=== PATIENT | male | born 1955 | race Caucasian/White ===

== ENCOUNTER → 2021-05-09 14:54 | Outpatient (CLI) | payer SELFPAY ==
[2021-05-01 13:34] VITALS: BMI 37.0
--- NOTE | 2021-05-09 14:59 | ECHOD_ITS ---
Reason For Study: AORTIC VALVE DISEASE Procedure This was a 2D Doppler, Color Flow transthoracic echocardiogram. The study was technically difficult. Due to body habitus and patient unable to stay on left side for imaging. Exam performed in department. Left Ventricle Normal LV size. Moderate concentric left ventricular hypertrophy. Left ventricular systolic function is normal. The estimated ejection fraction is 55 %. Segmental dysfunction with preserved ejection fraction (see wall motion). Stage 1 diastolic dysfunction. Infero-Basal: Akinetic. Basal inferoseptal: Akinetic. Posterior-Basal: Hypokinetic. Mid-Inferior: Hypokinetic. Right Ventricle Normal RV size. Normal systolic function. Atria Normal left atrium. Normal right atrium. Aortic Valve Trisinus/trileaflet aortic valve. Mild focal aortic valve calcification. Mild (1+) aortic valve insufficiency. Pulmonic Valve Normal pulmonic valve. Great Vessels Mildly dilated aortic root. The pulmonary artery is normal size. Normal inferior vena cava. Pericardium/Pleural No pericardial effusion. MMode/2D Measurements & Calculations LVIDd: 5.7 cm IVSd: 1.4 cm LVOT diam: 2.3 cm LVIDs: 4.0 cm LVPWd: 1.4 cm LVOT area: 4.2 cm2 RVDd: 3.5 cm FS: 29.3 % Ao root diam: 4.2 cm LAV(MOD-bp): 66.9 ml LA A4 area: 20.9 cm2 LAV(MOD-bp) Indexed: 28.8 ml/m2 LAV(MOD-sp2): 74.3 ml LAV(MOD-sp4): 50.7 ml RA A4 area: 18.3 cm2 Time Measurements MV dec time: 0.21 sec Doppler Measurements & Calculations MV E max orlando: 42.5 cm/sec Lat Peak E' [place]: 6.7 cm/sec Med Peak E' [place]: 6.5 cm/sec MV A max orlando: 55.3 cm/sec E/E' lat: 6.3 E/E' med: 6.5 MV E/A: 0.77 Ao V2 max: 195.1 cm/sec AI max orlando: 414.1 cm/sec LV V1 max: 152.3 cm/sec Ao max P.2 mmHg AI max P.0 mmHg LV V1 max P.3 mmHg Ao V2 mean: 136.0 cm/sec LV V1 mean P.3 mmHg Ao mean P.2 mmHg AI dec slope: 278.6 cm/sec2 LV V1 mean: 110.2 cm/sec Ao V2 VTI: 40.7 cm AI P1/2t: 435.4 msec LV V1 VTI: 33.9 cm ARASELI(I,D): 3.5 cm2 ARASELI(V,D): 3.3 cm2 SV(LVOT): 141.9 ml PA V2 max: 89.4 cm/sec ECHO/Echo Complete Interpretation Summary Normal LV size. Moderate concentric left ventricular hypertrophy. Left ventricular systolic function is normal. The estimated ejection fraction is 55 %. Segmental dysfunction with preserved ejection fraction (see wall motion). Stage 1 diastolic dysfunction. Ordering Physician: Yohan Cisneros Referring Physician: Oswaldo Lanier Performed By: Jayne Hill RDCS, RVT
== END ==
PROVIDERS: PCP Family Medicine; Referring Provider Nurse Practitioner Family; Visit Provider Nurse Practitioner Family
DX: I77.810 Thoracic aortic ectasia (principal); I35.1 Nonrheumatic aortic (valve) insufficiency; I48.0 Paroxysmal atrial fibrillation
CPT/HCPCS: 93306

== ENCOUNTER → 2021-10-07 15:54 | Outpatient (CLI) | payer SELFPAY ==
[2021-10-07 16:25] LABS: Absolute Lymphocyte Count 1.66 X10^3/uL (0.83-4.51); Absolute Neutrophil Count 3.8 X10^3/uL (2.0-7.7); Basophil# 0.06 X10^3/uL; Basophil% 0.9 % (0-1); Eosinophil# 0.13 X10^3/uL; Hematocrit 44.7 % (40-54); Hemoglobin 14.8 g/dL (13.0-16.5); Lymphocyte # 1.66 X10^3/ul (0.83-4.51); Mean Corp Hgb Conc 33.1 g/dL (32-36); Mean Corpuscular Hgb 32.2 pg (27.0-32.0); Mean Corpuscular Volume 97.2 fL (80-94); Mean Platelet Vol. 9.7 fl (6.2-12.0); Monocyte# 0.75 X10^3/uL; Monocyte% 11.7 % (0-10); NRBC Flagged by Analyzer 0 % (0-5); Neutrophil # 3.76 X10^3/uL (2.7-7.7); Neutrophil % 58.9 % (47-70); POSITIVE COUNT YES; Platelet Count 197 K/mm3 (150-450); RBC Distribution Width CV 12.3 % (11.6-14.6); RBC Distribution Width SD 44.2 fl (35.1-43.9); White Blood Count 6.4 K/mm3 (4.4-11.0)
[2021-10-07 17:29] LABS: Differential Indicated SCAN CRITERIA MET
[2021-10-07 17:30] LABS: Anisocytosis RARE; Platelet Estimate ADEQUATE (ADEQ); Red Cell Morphology N CHROM NORMAL (NORM C&C)
[2021-10-07 17:31] LABS: Anion Gap 7 (5-15); BUN 22 mg/dL (7-18); BUN/Creat Ratio 25.4 RATIO (10-20); Calcium,Total 8.9 mg/dL (8.5-10.1); Chloride 106 mmol/L (98-107); Cholesterol 180 mg/dL (200); Creatinine, Serum 0.87 mg/dL (0.70-1.30); EST Glomerular Filtration Rate 94 mL/min (>60); Est Glom Filt Rate - Afr Amer 113 mL/min (>60); Glucose 93 mg/dL (74-106); High Density Lipoprotein 50 mg/dL; Magnesium 2.4 mg/dL (1.6-2.6); Potassium 4.5 mmol/L (3.5-5.1); Sodium Level 139 mmol/L (136-145); Triglycerides 123 mg/dL; Very Low Density Lipoprotein 25 mg/dL (5-40)
== END ==
PROVIDERS: PCP Family Medicine; Referring Provider Internal Medicine Cardiovascular Disease; Visit Provider Internal Medicine Cardiovascular Disease
DX: I77.810 Thoracic aortic ectasia (principal); I10 Essential (primary) hypertension
CPT/HCPCS: 36415; 80048; 80061; 83735; 85025

== ENCOUNTER 2021-10-24 06:08 | Outpatient (CLI) | payer SELFPAY, OTHER ==
--- NOTE | 2021-10-24 08:53 | STRESSREP ---
Stress Test Report Pharmacologic myocardial perfusion stress test. 66-year-old man with a history of atrial fibrillation. Stress protocol: Resting KG demonstrates sinus rhythm with a rate of 66 bpm normal intervals are noted. 0.4 mg of regadenoson was infused per usual protocol followed by Intravenous saline flush injection continuous EKG monitoring was performed. The maximum heart rate attained was 84 bpm which was 54% of max infected heart rate maximum workload was 1 metabolic equivalent. At rest there were no ST or T wave changes noted to suggest abnormal flow reserve and at peak infusion nonspecific ST changes were noted with did not meet the criteria for ischemia. No clinical angina was noted. Myocardial perfusion protocol. 14.5 mCi of technetium 99m sestamibi was injected. 0.4 mg of regadenoson was infused per usual protocol. At peak infusion 44.7 mCi of technetium 99m sestamibi was injected stress images were obtained stress and rest images were reconstructed and compared in the short axis vertical long horizontal long axis. Gated images were also obtained. Perfusion SPECT analysis: Review of the stress images demonstrate normal uptake of tracer noted in all areas of the myocardium. The resting images similarly demonstrate normal uptake of tracer noted in all areas of the myocardium. No areas of reversibility are noted to suggest ischemia and no previous infarct is noted. Gated SPECT analysis: The gated ejection fraction is 45%. Conclusion: Normal pharmacologic myocardial perfusion stress test. Preserved ejection fraction.
== END 2021-10-24 23:59 | disposition short-term general hospital (02) ==
PROVIDERS: PCP Family Medicine; Referring Provider Internal Medicine Cardiovascular Disease; Visit Provider Internal Medicine Cardiovascular Disease
DX: I48.91 Unspecified atrial fibrillation (principal); I35.1 Nonrheumatic aortic (valve) insufficiency
CPT/HCPCS: 78452; 93017; A9500; A4216; J2785

== ENCOUNTER → 2024-03-17 | Outpatient (CLI) | payer SELFPAY, OTHER ==
--- NOTE | 2024-03-17 07:37 | ECHOCS_ITS ---
Version 2 Reason For Study: HTN Procedure This was a 2D Doppler, Color Flow transthoracic echocardiogram. The study was technically difficult. Contrast injection was performed. Exam performed in department. Left Ventricle Normal LV size. Mild concentric left ventricular hypertrophy. Left ventricular systolic function is normal. The left ventricular ejection fraction is 55 %. No regional wall motion abnormalities noted. Right Ventricle Normal RV size. Normal systolic function. Atria The left atrium is moderately enlarged. Normal right atrium. Aortic Valve Trisinus/trileaflet aortic valve. Mild focal aortic valve calcification. Peak aortic valve gradient 13.7 mmHg. Mean aortic valve gradient 8 mmHg. Mild (1+) aortic valve insufficiency. Pulmonic Valve Normal pulmonic valve. Great Vessels Mildly dilated aortic root. The pulmonary artery is normal size. Normal inferior vena cava. Pericardium/Pleural No pericardial effusion. Medication 22 gauge I.V. with prn adaptor inserted into left arm. Diluted definity 2.5ml given slow IV push to enhance endocardial definition. MMode/2D Measurements & Calculations LVIDd: 6.5 cm IVSd: 1.3 cm Ao root diam: 4.1 cm LVIDs: 4.9 cm LVPWd: 1.2 cm LA dimension: 4.7 cm RVDd: 3.6 cm FS: 24.6 % LAV(MOD-bp): 105.3 ml LVAd ap4: 52.4 cm2 SV(MOD-sp4): 127.1 ml LAV(MOD-bp) Indexed: 45.7 ml/m2 LVLd ap4: 9.3 cm LAV(MOD-sp2): 101.8 ml EDV(MOD-sp4): 240.5 ml LAV(MOD-sp4): 103.6 ml EDV(sp4-el): 249.9 ml LVAs ap4: 33.3 cm2 LVLs ap4: 7.9 cm ESV(MOD-sp4): 113.4 ml ESV(sp4-el): 119.1 ml EF(MOD-sp4): 52.8 % EF(sp4-el): 52.3 % SV(sp4-el): 130.8 ml LA A4 area: 30.1 cm2 RA A4 area: 18.5 cm2 TAPSE: 2.5 cm Time Measurements MV dec time: 0.15 sec Doppler Measurements & Calculations MV E max orlando: 63.8 cm/sec Lat Peak E' [place]: 9.3 cm/sec Med Peak E' [place]: 9.4 cm/sec MV A max orlando: 35.7 cm/sec E/E' lat: 6.9 E/E' med: 6.8 MV E/A: 1.8 MV V2 max: 95.6 cm/sec MV P1/2t max orlando: 96.3 cm/sec Ao V2 max: 185.0 cm/sec MV max P.7 mmHg MV P1/2t: 70.8 msec Ao max P.7 mmHg MV V2 mean: 45.1 cm/sec MV dec slope: 398.2 cm/sec2 Ao V2 mean: 134.3 cm/sec MV mean P.0 mmHg Ao mean P.8 mmHg MV V2 VTI: 27.4 cm MVA(P1/2t): 3.1 cm2 Ao V2 VTI: 48.6 cm AV (velocity ratio): 0.40 AI max orlando: 346.4 cm/sec LV V1 max: 84.7 cm/sec PA V2 max: 71.7 cm/sec AI max P.0 mmHg LV V1 max P.9 mmHg PA V2 mean: 46.4 cm/sec AI dec slope: 261.6 cm/sec2 LV V1 mean P.6 mmHg AI P1/2t: 387.8 msec LV V1 mean: 59.9 cm/sec LV V1 VTI: 19.5 cm ECHO/Echo Complete W/ Contrast Interpretation Summary Normal LV size. Left ventricular systolic function is normal. Peak aortic valve gradient 13.7 mmHg. Mild concentric left ventricular hypertrophy. The left ventricular ejection fraction is 55 %. No regional wall motion abnormalities noted. Contrast injection was performed. Ordering Physician: Apolinar Elder Referring Physician: Oswaldo Lanier Performed By: Doug Nieto RCS
== END | disposition home or self-care (01) ==
LOC: CVS 07:34
PROVIDERS: PCP Family Medicine; Referring Provider Internal Medicine Cardiovascular Disease; Visit Provider Internal Medicine Cardiovascular Disease
DX: I10 Essential (primary) hypertension (principal)
CPT/HCPCS: 93306; Q9957; A4216; C8929

== ENCOUNTER 2025-03-30 08:00 | Emergency (ER) | payer OTHER, SELFPAY ==
[2025-03-30 08:00] VITALS: BP 158/50; PULSE 61; RESP 18; TEMP 36.4; O2SAT 99; BMI 35.4
--- NOTE | 2025-03-30 08:38 | CT_ITS ---
PROCEDURE: CTA HEAD AND NECK W/ CONTRAST 03/30/2025 REASON FOR EXAM: VERTIGO TECHNIQUE: CTA imaging of the head and neck from the aortic arch to the skull vertex with out contrast and with intravenous contrast. Multiplanar and multisequence images were obtained. CONTRAST: Isovue-300 VOLUME: 100 mL One or more dose reduction techniques were used (e.g., Automated exposure control, adjustment of the mA and/or kV according to patient size, use of iterative reconstruction technique). RADIATION DOSE SUMMARY: CTDlvol: 33 mGy DLP: 1694.05 mGycm COMPARISON: None FINDINGS: Unenhanced images of the brain show evidence of mild degree of cerebral atrophy. Decreased attenuation in the periventricular white matter bilaterally suggestive of chronic small-vessel disease. Calcification of the basal ganglia. This is a normal variant for patient's age. Focal encephalomalacia in the left posterior parietal lobe suggestive of old ischemic change. Aortic Arch: Normal size and branching pattern. Mild atherosclerotic plaque. Brachiocephalic and Subclavians: Mild atherosclerotic plaque without significant stenosis. RIGHT Carotid: Right CCA: Unremarkable. Right ICA: Mild calcified and soft plaque. Maximum stenosis (NASCET): 50% % Right ECA: Unremarkable. LEFT Carotid: Left CCA: Unremarkable. Left ICA: Mild calcified and soft plaque. Maximum stenosis (NASCET): 50 % Left ECA: Unremarkable. Vertebrals: Codominant. Arise from the subclavians. Both vertebrals form the basilar. RIGHT Vertebral: Unremarkable. LEFT Vertebral: Unremarkable. Anatomy: [place] of [place] anatomy is normal. Aneurysm or avm: No intracranial aneurysms or large vascular malformations are identified. Anterior cerebral arteries: Unremarkable: Middle cerebral arteries: Unremarkable. Basilar artery: Unremarkable. Posterior cerebral arteries: Unremarkable. Other major branches of the posterior circulation: Unremarkable. Major venous structures: Unremarkable. Other findings: Neck: Lungs: Bones: CT/CTA Head AND Neck W/ Contrast IMPRESSION: Old encephalomalacia in the posterior aspect of the left parietal lobe. Calcified plaques at origins of both right and left internal carotid artery cau sing 50% stenosis. Reading Location: [id number]
--- NOTE | 2025-03-30 08:47 | EDS_ITS ---
HPI History of Present Illness Chief Complaint: Dizziness Informant: patient Narrative Narrative: Patient is a 70-year-old male with history of proximal atrial fibrillation (previously on Eliquis but now on naturopathic clot Buster), hypertension (on lisinopril 40 mg), valvular heart disease and prior stroke presenting with dizziness. Patient states he started feeling this way yesterday evening where he just was not feeling well and was nauseous. States the dizziness feels more like a room spinning sensation. He feels off balance. Symptoms are worse with movement especially if he leans his head forward or bends down. He notes that he went to bed and slept for most of the night which is unusual for him (he usually gets up multiple times to urinate has a history of BPH). This morning after getting up to go to the bathroom walking back he had a hard time and his symptoms were worse. He denies any associated vomiting with the nausea. Denies abdominal pain. Denies associated chest discomfort or trouble breathing. Denies any numbness or tingling. Notes that he has chronic area of numbness to part of his lateral left thigh but this is been going on for years and not changed today. He denies any recent ringing in his ears. Denies any double vision. Has never had any issues with vertigo in the past per the patient. States it does not feel like near syncope/lightheadedness. Denies any speech changes or double vision. Came in with family for further evaluation. Per nursing staff when patient arrived he was diaphoretic and uncomfortable appearing. Echocardiogram reviewed from 03/17/2024?mild concentric LVH present with EF of 5 5% and no regional wall motion abnormalities noted. Carotid duplex ultrasound on 05/20/2017?less than 50% stenosis bilateral extracranial internal carotid arteries. Heterogenous atherosclerotic plaque noted in the left common carotid artery as well as bilateral external carotid arteries. Antegrade flow noted in bilateral vertebral arteries. [facility] Medical History History of CVA (cerebrovascular accident) (05/18/17) Essential hypertension Hyperlipidemia Paroxysmal atrial fibrillation Dilated aortic root Home Medications ?Medication ?Instructions ?Recorded ?Last Taken ?Type lisinopril 40 mg tablet 40 mg PO DAILY #14 tabs 03/1803/30/25 Rx meclizine 25 mg tablet 25 mg PO 4X/DAY PRN PRN Dizz iness 03/30/25 Unknown Rx #20 tabs Allergy/AdvReac Type Severity Reaction Status Date / Time No Known Allergies Allergy Verified 03/30/25 08:02 Family History Father CVA (cerebral vascular accident) Social History Smoking Status: Never smoker alcohol intake: never substance use type: does not use caffeine: Yes ROS ROS ED Constitutional Constitutional ED: Denies chills or fever(s) Eyes Eyes: Denies blurry vision or diplopia ENT ENT ED: Reports other Details: Denies tinnitus ; Denies rhinorrhea or sore throat Cardiovascular Cardiovascular: Denies chest pain or palpitations Respiratory/Chest Respiratory/Chest: Denies cough or dyspnea Gastrointestinal Gastrointestinal: Reports nausea; Denies abdominal pain or vomiting Musculoskeletal Musculoskeletal: Denies arthralgias or myalgias Integumentary Denies rash Neurologic Neurologic: Denies headache(s), paresthesias or weakness Psychiatric Psychiatric: Denies anxiety Hematologic/Lymphatic Hematologic/Lymphatic: Denies easy bleeding or easy bruising EXAM Physical Exam Const Vital Signs: 03/30/25 08:00 03/30/25 10:29 Temperature 97.6 F L Temperature Source Oral Pulse Rate 61 58 L Respiratory Rate 18 13 Blood Pressure 158/50 H 185/63 H Blood Pressure Mean 86 103 Pulse Ox 99 100 Oxygen Delivery Method Room Air Room Air Positive well nourished and well developed General Appearance ED: well developed and NAD HEENT Reports moist mucous membranes HEENT Narrative: Normal external ears. Normal right tympanic membrane. Cerumen impaction present in the left tympanic membrane. Unable to visualize the TM on the left. Normal ear canal that is visualized. There is slight asymmetry with blinking on the left side. There is intermittent fasciculations around the left eye. This is chronic for the patient and can be overcome when he is paid attention to it. Eyes PERRL and EOMs intact bilaterally Eyes Narrative: No nystagmus on exam. Negative Halstead-Hallpike maneuver bilaterally. This does not reproduce his symptoms. Neck supple and no JVD Neck Narrative: No carotid bruit appreciated Chest Wall inspection of chest normal and palpation of chest normal Resp normal respiratory effort and clear to auscultation bilaterally Cardio regular rate, regular rhythm and no murmurs GI normal to inspection, nondistended, normoactive bowel sounds and non-tender Palpation: soft Extremity normal to inspection General Extremety ED: Negative for edema General Extremity: Negative for edema Neuro oriented x3, CN's II-XII intact bilaterally and no sensory deficits noted Neuro Narrative: Normal [id number]. Normal [id number]. No truncal ataxia appreciated. No focal neurologic deficits appreciated. NIH equals 0 Sensorium / Orientation: alert Motor Exam: strength 5/5 throughout; Negative for general weakness Psych mental status grossly normal Skin no rashes or lesions noted and no wounds MDM MDM MDM Narrative Medical decision making narrative: Patient evaluated for vertigo. Worse with head movement. Started yesterday. Otherwise has a normal/no acute neurologic symptoms. Does have a cerumen impaction on the left side. Symptoms are mild at this time and I am not able to reproduce it with Halstead-Hallpike maneuver. He does have stroke risk factors including prior stroke, proximal atrial fibrillation, hypertension hyperlipidemia so I did obtain lab work and CTA. EKG looking for arrhythmia does show T wave inversions which are new. High-sensitivity troponins added on given the abnormal EKG however these are minimally elevated but stable. I do not think there is any acute cardiac process at going on. CBC and CMP largely normal. Patient given meclizine in the emergency room. CTA of the head and neck obtained which does not show any acute ischemic changes and there is calcified plaques of the origins of the bilateral internal carotids causing 50% stenosis. I do not think this would contribute to acute neurologic symptoms at this time. Patient feels improved in the ER. Blood pressure is up trended however he did not take his morning lisinopril was given a dose in the ER. Patient is ambulated. Does feel improved after irrigation resolution of left- sided cerumen impaction. I did offer admission as I cannot definitively rule out stroke without an MRI. Patient states that he is feeling better at this time feels comfortable being discharged home. Notes that he is ready low on his lisinopril will be given a 2-week supply to ensure he does not run out. I did discussed the benefits of taking his Eliquis instead of his natural supplement. At this time he does not want me to represcribe it but I did encourage him to follow-up with cardiology about this as well. Patient ambulated with a steady gait is not ataxic. Given return precautions. Discharged home with prescription for as needed meclizine and outpatient follow- up instructions. Lab Data Attestation: I reviewed the patient's lab results. Labs: Laboratory Results - last 24 hr 03/30/25 03/30/25 08:12 10:33 WBC 8.4 RBC 4.34 L Hgb 14.0 Hct 40.6 MCV 93.5 MCH 32.3 H MCHC 34.5 RDW Std Deviation 43.4 RDW Coeff of Chelsey 12.5 Plt Count 210 MPV 9.8 Immature Gran % (Auto) 0.400 Neut % (Auto) 67.3 Lymph % (Auto) 24.4 [place] % (Auto) 7.2 Eos % (Auto) 0.2 Baso % (Auto) 0.5 Absolute Neuts (auto) 5.7 Absolute Lymphs (auto) 2.05 Nucleated RBC % 0 PT 12.9 INR 1.0 Sodium 137 Potassium 4.7 Chloride 104 Carbon Dioxide 21.1 Anion Gap 12 BUN 22 H Creatinine 0.79 Estim Creat Clear Calc 107.73 Est GFR (MDRD) Non-Af 96 BUN/Creatinine Ratio 27.8 H Glucose 147 H Calcium 9.5 Total Bilirubin 0.30 AST 22 ALT 18 Alkaline Phosphatase 52 Troponin T High Sens 24 H Troponin T Hi Sens 2 Hr 23 H Total Protein 7.2 Albumin 4.4 Globulin 2.7 Albumin/Globulin Ratio 1.6 Radiography Chest X-Ray - ED: 2 View, Read by ED Physician, Read by Radiologist and No Acute Disease Diagnostic Testing: Clinical Impression(s) from Imaging Studies Head/Neck CTA 03/30/25 08:38 IMPRESSION: Old encephalomalacia in the posterior aspect of the left parietal lobe. Calcified plaques at origins of both right and left internal carotid artery causing 50% stenosis. Reading Location: [id number] Chest X-Ray 03/30/25 09:20 IMPRESSION: The lateral view is limited by some patient motion. Mild left hemidiaphragm elevation is seen. Lungs are hypoinflated, but no acute pneumonic process is identified. No pleural effusion or pneumothorax is seen. The cardiomediastinal silhouette is remarkable for a somewhat tortuous aorta. No evidence of cardiomegaly. [id number] degenerative changes of the thoracic spine are noted. No acute osseous change is seen. Reading Location: [address] Rhythm Strip Rhythm Strip: Sinus Rhythm Rate: 62 Ectopy: None EKG Initial EKG: Attestation: I personally reviewed and interpreted this EKG as follows: Interpretation: Sinus Rhythm Comments: Normal sinus rhythm at a rate of 62 bpm Normal axis Normal intervals LVH with repolarization abnormalities T wave inversions in lateral leads as well as lead II with no reciprocal changes Compared to prior EKG On 05/18/2017?patient now has criteria for LVH and more pronounced T wave inversions in the lateral leads with new T wave inversion in lead II however there is resolution T wave inversions in 3 and aVF Discharge Plan Triage Chief Complaint: Dizziness ED Provider: Ngozi Roach Dx/Rx/DC Orders Clinical Impression: Vertigo, Essential hypertension Instructions: ED Vertigo, Unspecified Prescriptions: New meclizine 25 mg tablet 25 mg PO 4X/DAY PRN PRN (Reason: Dizziness) Qty: 20 0RF Continued lisinopril 40 mg tablet 40 mg PO DAILY Qty: 14 0RF Primary Care Provider: Oswaldo Lanier Referrals: Oswaldo Lanier DO [Primary Care Provider] - Apolinar Elder MD [Med Staff - Active Staff] - Lai Soto MD [Med Staff - Active Staff] - Activity Restrictions/Additional Instructions: At this time is more than likely that lower dizziness is associated with near ear problem is causing the vertigo. As we discussed we cannot completely rule out stroke to the balance and of the brain rating is less likely given your workup today. If you develop any loss of coordination, having a hard time holding things or double vision please return to emergency room. You been given a prescription to take as needed up to 4 times a day to help with the vertigo symptoms. If vertigo symptoms persist please follow-up with ear nose and throat. As we discussed take your blood pressure medicine regularly, keep a blood pressure log and follow-up with cardiology. Print Language: Burmese Disposition Disposition: Home, Self Care
[2025-03-30 08:51] LABS: Absolute Lymphocyte Count 2.05 X10^3/uL (0.83-4.51); Absolute Neutrophil Count 5.7 X10^3/uL (2.0-7.7); Basophil# 0.04 X10^3/uL; Basophil% 0.5 % (0-1); Eosinophil# 0.02 X10^3/uL; Eosinophils% 0.2 % (0-5); Hematocrit 40.6 % (40-54); Lymphocyte # 2.05 X10^3/ul (0.83-4.51); Lymphocyte % 24.4 % (19-41); Mean Corp Hgb Conc 34.5 g/dL (32-36); Mean Corpuscular Hgb 32.3 pg (27.0-32.0); Mean Corpuscular Volume 93.5 fL (80-94); Mean Platelet Vol. 9.8 fl (6.2-12.0); Monocyte% 7.2 % (0-10); NRBC Flagged by Analyzer 0 % (0-5); Neutrophil # 5.65 X10^3/uL (2.7-7.7); Neutrophil % 67.3 % (47-70); Platelet Count 210 K/mm3 (150-450); RBC Distribution Width CV 12.5 % (11.6-14.6); RBC Distribution Width SD 43.4 fl (35.1-43.9); Red Blood Count 4.34 M/mm3 (4.6-6.2); White Blood Count 8.4 K/mm3 (4.4-11.0)
[2025-03-30 09:03] LABS: Prothrombin Time (Protime)PT. 12.9 SECONDS (11.7-14.9)
[2025-03-30 09:12] LABS: Troponin T High Sensitivity 24 ng/L (<=22)
--- NOTE | 2025-03-30 09:20 | RAD_ITS ---
PROCEDURE: CHEST PA AND LATERAL 03/30/2025 REASON FOR EXAM: DIZZINESS TECHNIQUE: Frontal and lateral views of the chest. COMPARISON: None. RAD/Chest PA and Lateral IMPRESSION: The lateral view is limited by some patient motion. Mild left hemidiaphragm elevation is seen. Lungs are hypoinflated, but no acute pneumonic process is identified. No pleural effusion or pneumothorax is seen. The cardiomediastinal silhouette is remarkable for a somewhat tortuous aorta. No evidence of cardiomegaly. [id number] degenerative changes of the thoracic spine are noted. No acut e osseous change is seen. Reading Location: [address]
[2025-03-30] MEDS: Meclizine HCl 25 MG Tablet PO (09:30)
[2025-03-30 09:56] LABS: ALB/GLOB Ratio 1.6 RATIO (0.9-2.4); AST(SGOT) 22 U/L (<=37); Alanine Aminotransfer ALT/SGPT 18 U/L (<=46); Albumin, Serum 4.4 g/dL (3.4-4.8); Alkaline Phosphatase 52 U/L (40-129); Anion Gap 12 (5-15); BUN 22 mg/dL (4-19); BUN/Creat Ratio 27.8 RATIO (10-20); Calcium,Total 9.5 mg/dL (7.6-11.0); Carbon Dioxide 21.1 mmol/L (21.0-32.0); Chloride 104 mmol/L (98-108); Creatinine, Serum 0.79 mg/dL (0.70-1.20); EST Glomerular Filtration Rate 96 (>60); Estimated Creatinine Clearance 107.73 ml/min (50-250); Globulin 2.7 g/dL (2.2-4.2); Glucose 147 mg/dL (70-99); Potassium 4.7 mmol/L (3.3-5.1); Protein, Total 7.2 g/dL (5.9-8.4); Sodium Level 137 mmol/L (133-145)
[2025-03-30 10:29] VITALS: BP 185/63; PULSE 58; RESP 13; O2SAT 100
--- OUTSIDE RECORDS SUMMARY | 2025-03-30 10:29 | XMS RPT_ITS | CCD ---
Author Organization [employer] [facility] Care Team Providers Care Barrel Bander Name Role Phone Melodie Gonsalez Unavailable Ramos Agarwal Unavailable Unavailable Melodie Gonsalez Unavailable Zenia PORTER, Macy Lindsey Unavailable Unavailable Jael JAMES, Apolinar Herndon Primary Care Provider [phone] Yolande, Oswaldo Referring Unavailable Jael, Apolinar Attending Unavailable Yolande, Oswaldo Primary Care Unavailable Yolande, Oswaldo Primary Care Unavailable Yolande, Oswaldo Referring Unavailable Jael, Apolinar Attending Unavailable Jael, [place] Attending Unavailable Yolande, Oswaldo Primary Care Unavailable Jael, Apolinar Attending Unavailable Jael, Apolinar Referring Unavailable Yolande, Oswaldo Primary Care Unavailable JAEL, APOLINAR S Referring Unavailable JAEL, APOLINAR S Primary Care Unavailable Allergies Allergy Classification Reported Allergen(s) Allergy Type Date of Onset Reaction(s) Facility (1 source) ALLERGIES NOT ON FILE; Translations: [ALLERGIES NOT ON FILE] Propensity to adverse reactions (disorder) [facility] 2 Repository Medications Completed/Discontinued Medications Medication Drug Class(es) Dates Sig (Normalized) Sig (Original) apixaban 5 mg oral tablet (3 sources) Factor Xa Inhibitor Start: 05-27-2017 take 1 tablet by mouth twice daily ELIQUIS 5 MG TABS One tablet by mouth twice daily APIXABAN [id number] Macy Knutson RN atorvastatin 80 mg oral tablet (3 sources) HMG-CoA Reductase Inhibitor Start: 05-27-2017 take 1 tablet by mouth once daily ATORVASTATIN CALCIUM 80 MG TABS One tablet by mouth daily ATORVASTATIN CALCIUM [id number] Macy Knutson RN furosemide 40 mg oral tablet (3 sources) Loop Diuretic Start: 05-27-2017 take 1 tablet by mouth once daily FUROSEMIDE 40 MG TABS One tablet by mouth daily FUROSEMIDE [id number] Macy Knutson RN Drug Treatment Unknown - unknown (1 source) No information available. Problems Active Problems Problem Classification Problem Date Documented Da te Episodic/Chronic Aortic; peripheral; and visceral artery aneurysms (2 sources) Aortic root dilatation; Translations: [Thoracic aortic ectasia] Onset: 05-27-2017 05-27-2017 Chronic Cardiac dysrhythmias (8 sources) Atrial fibrillation; Translations: [Paroxysmal atrial fibrillation] Onset: 08-27-2023 05-27-2017 Chronic Disorders of lipid metabolism (4 sources) Hyperlipidemia; Translations: [Hyperlipidemia, unspecified] Onset: 08-27-2023 08-27-2023 Chronic Essential hypertension (5 sources) Essential hypertension; Translations: [Essential (primary) hypertension] Onset: 08-27-2023 08-27-2023 Chronic Heart valve disorders (12 sources) Aortic incompetence, non-rheumatic ; Translations: [Aortic root dilatation] Onset: 05-27-2017 05-27-2017 Chronic Transient cerebral ischemia (3 sources) Transient cerebral ischemia; Translations: [Transient cerebral ischemic attack, unspecified] Onset: 05-27-2017 05-27-2017 Chronic Unclassified (1 source) No current problems or disability 05-26-2017 Past or Other Problems Problem Classification Problem Date Documented Date Episodic/Chronic Other circulatory disease (3 sources) History of cerebrovascular disease; Translations: [Personal history of transient ischemic attack (TIA), and cerebral infarction without residual deficits] Onset: 08-27-2023 08-27-2023 Episodic Other circulatory disease (1 source) Personal history of transient ischemic attack (TIA), and cerebral infarction without residual deficits; Translations: [Personal history of transient ischemic attack (TIA), and cerebral infarction without residual deficits] Onset: 08-27-2023 Episodic Results Test Name Value Interpretation Reference Range Facility Echo Complete W/ Contraston 03-17-2024 Echo Complete W/ Contrast [facility] [address] [place] [id number] Echo Complete W/ Contrast 03/17/24 08 MR#: [id number] Acct: [id number] Name: DUANE EKE Rep #: [id number] : 1955 69 From: Apolinar Ohara MD Attending Dr: Dr. Apolinar Ohara MD Status: MEGAN Milana ROSA Ordering Dr: Apolinar Ohara MD Date: 03/17/24 Location: [facility] Sex: M C Admitted: Version 2 Reason For Study: HTN Procedure This was a 2D Doppler, Color Flow transthoracic echocardiogram. The study was technically difficult. Contrast injection was performed. Exam performed in department. Left Ventricle Normal LV size. Mild concentric left ventricular hypertrophy. Left ventricular systolic function is normal. The left ventricular ejection fraction is 55 %. No regional wall motion abnormalities noted. Right Ventricle Normal RV size. Normal systolic function. Atria The left atrium is moderately enlarged. Normal right atrium. Aortic Valve Trisinus/trileaflet aortic valve. Mild focal aortic valve calcification. Peak aortic valve gradient 13.7 mmHg. Mean aortic valve gradient 8 mmHg. Mild (1+) aortic valve insufficiency. Pulmonic Valve Normal pulmonic valve. Great Vessels Mildly dilated aortic root. The pulmonary artery is normal size. Normal inferior vena cava. Pericardium/Pleural No pericardial effusion. Medication 22 gauge I.V. with prn adaptor inserted into left arm. Diluted definity 2.5ml given slow IV push to enhance endocardial definition. MMode/2D Measurements Calculations LVIDd: 6.5 cm IVSd: 1.3 cm Ao root diam: 4.1 cm LVIDs: 4.9 cm LVPWd: 1.2 cm LA dimension: 4.7 cm RVDd: 3.6 cm FS: 24.6 % _ LAV(MOD-bp): 105.3 ml LVAd ap4: 52.4 cm2 SV(MOD-sp4): 127.1 ml LAV(MOD-bp) Indexed: 45.7 ml/m2 LVLd ap4: 9.3 cm LAV(MOD-sp2): 101.8 ml EDV(MOD-sp4): 240.5 ml LAV(MOD-sp4): 103.6 ml EDV(sp4-el): 249.9 ml LVAs ap4: 33.3 cm2 LVLs ap4: 7.9 cm ESV(MOD-sp4): 113.4 ml ESV(sp4-el): 119.1 ml EF(MOD-sp4): 52.8 % EF(sp4-el): 52.3 % _ SV(sp4-el): 130.8 ml LA A4 area: 30.1 cm2 RA A4 area: 18.5 cm2 _ TAPSE: 2.5 cm Time Measurements MV dec time: 0.15 sec Doppler Measurements Calculations MV E max orlando: 63.8 cm/sec Lat Peak E' [place]: 9.3 cm/sec Med Peak E' [place]: 9.4 cm/sec MV A max [place]: 35.7 cm/sec E/E' lat: 6.9 E/E' med: 6.8 MV E/A: 1.8 _ MV V2 max: 95.6 cm/sec MV P1/2t max [place]: 96.3 cm/sec Ao V2 max: 185.0 cm/sec MV max P.7 mmHg MV P1/2t: 70.8 msec Ao max P.7 mmHg MV V2 mean: 45.1 cm/sec MV dec slope: 398.2 cm/sec2 Ao V2 mean: 134.3 cm/sec MV mean P.0 mmHg Ao mean P.8 mmHg MV V2 VTI: 27.4 cm MVA(P1/2t): 3.1 cm2 Ao V2 VTI: 48.6 cm AV (velocity ratio): 0.40 _ AI max [place]lando: 346.4 cm/sec LV V1 max: 84.7 cm/sec PA V2 max: 71.7 cm/sec AI max P.0 mmHg LV V1 max P.9 mmHg PA V2 mean: 46.4 cm/sec AI dec slope: 261.6 cm/sec2 LV V1 mean P.6 mmHg AI P1/2t: 387.8 msec LV V1 mean: 59.9 cm/sec LV V1 VTI: 19.5 cm ECHO/Echo Complete W/ Contrast Interpretation Summary Normal LV size. Left ventricular systolic function is normal. Peak aortic valve gradient 13.7 mmHg. Mild concentric left ventricular hypertrophy. The left ventricular ejection fraction is 55 %. No regional wall motion abnormalities noted. Contrast injection was performed. Ordering Physician: Apolinar Ohara Referring Physician: Oswaldo Lanier Performed By: Doug Nieto RCS 03/19/24 1534 Date Apolinar Ohara MD CC: Dr. Oswaldo Lanier MD; Dr. Apolinar Ohara MD Date Dictated: 03/17/24 0803 Date Transcribed: 03/19/24 1533 Cow Tester: Signed Normal [facility] Cardiology Visit Reporton Cardiology Visit Report [facility] [address] [place] [address] OFFICE VISIT Date of Service: 01/25/24 MR#: [id number] Acct: [id number] Name: DUANE KEE Rep #: [id number] : 1955 Provider: Dr. Apolinar Ohara MD Age/Sex: 69/M Location: [facility] [place] Status: Signed HPI HPI History of Present Illness Details: DUANE KEE, is a 69 M who presents to the office today for a cardiovascular outpatient follow-up. He has a history of paroxysmal atrial fibrillation, valvular heart disease, hypertension, hyperlipidemia, and CVA in May 2017. Echocardiogram in April 2021 showed ejection function of 55% and an aortic root measuring 4.2 cm. Stress test on 10/24/2021 was negative for ischemia. He told me that he was ordered for and underwent a coronary calcium CT scan which demonstrated a score of 0, and mildly dilated ascending aorta, and a 5 mm nodule at the lingula of the lung. He has been asked to come here for further interpretation. He did undergo a stress test in October 2021 which demonstrated no evidence of ischemia. He denies chest, arm, jaw, or neck discomfort. He denies palpitations. He denies bilateral lower extremity edema. He denies claudication. He states shortness of breath with activity such walking fast or uphill. He denies shortness of breath at rest, orthopnea, or PND. He states intermittent snoring. He denies chronic cough. He denies significant, sudden weight gain. He denies lightheadedness, dizziness, near-syncope, or syncope. He denies blood in urine, blood in stool, or epistaxis. He denies fever or chills. He denies myalgia. He denies fatigue. His exercise level has remained stable. They are accompanied by a elevator runner who was the advocate. Intake Vital Signs 04/27/23 13:48 01/25/24 15:24 Height 5 ft 10 in 5 ft 10 in Weight: 259 lb 253 lb 8 oz BMI 37.1 36.3 BP 172/77 H 162/72 H Blood Pressure Location Lt brachial Lt brachial Position Sitting Sitting Respiration 22 H 16 Pulse 66 70 Pulse Source Monitor Monitor Pulse Oximetry (%) 97 Intake Visit Reasons: 9 m fu (HAPPY BIRTHDAY) [employer] Required: No Accompanied by: Is patient in pain?: No Allergies No Known Allergies Allergy (Verified 01/25/24 15:27) Medications apixaban 5 mg tablet (Eliquis) 5 mg PO BID #180 tabs 06/29/22 [Rx Confirmed 01/25/24] amlodipine 10 mg tablet 10 mg PO DAILY #90 tabs 01/25/24 [Rx Confirmed 01/25/24] lisinopril 40 mg tablet 40 mg PO DAILY #90 tabs 01/25/24 [Rx Confirmed 01/25/24] Ejection fraction %: 55 to 59 PFSH Medical History Dilated aortic root Essential hypertension History of CVA (cerebrovascular accident) (05/18/17) Hyperlipidemia Paroxysmal atrial fibrillation Family History Father CVA (cerebral vascular accident) Social History Smoking Status: Never smoker alcohol intake: never substance use type: does not use caffeine: Yes ROS Const Const: Negative for fatigue, weakness, headache(s), daytime sleepiness or difficulty sleeping ENT ENT: Positive for dizziness (at times); Negative for headache(s) or Nosebleed/epistaxis Cardio Chest Pain: No Palpitations: No Edema: None Resp Respiratory: Positive for SOB with activity; Negative for SOB at rest, SOB orthopnea SOB lying down or Cough GI GI: Negative nausea, vomiting or heartburn Neuro Neuro: Positive for dizziness (at times); Negative for lightheadedness, near syncope, headache(s) or weakness Endo Endo: Negative for fatigue Cardiology Exam Const Appearance: cooperative, healthy appearing, comfortable and no acute distress Nutritional Appearance: well nourished and obese Orientation: alert, awake and oriented x3 Head Head: normal to inspection Ears: hearing grossly normal bilaterally Nose: external nose normal Face and Sinus: face symmetric Mouth: moist mucous membranes Eyes General: appearance normal, both eyes and all related structures Eyelids: eyelids normal EOM: EOM intact bilaterally Neck Neck: normal visual inspection and no JVD Carotids: normal carotid upstroke Chest Chest inspection: normal inspection of the chest, symmetric chest movement and normal respiratory effort; Negative cough Auscultation: Bilateral: Clear to Auscultation Cardio Rate: regular rate Rhythm: regular rhythm Heart sounds: S1 normal and S2 normal; Negative rub, gallop or murmur GI GI: normal to inspection and obese Neuro General: patient alert, patient awake, patient oriented x3 and CN's II-XI intact bilaterally Skin Skin: no rashes or lesions noted Extremities Pulses: Normal: Right Posterior Tibial Pulse, Left Posterior Tibial Pulse, Right Radial Pu (more content not included)... Normal [facility] CT for calcium scoring WO sc ntrast and CTA W contrast IV Heart and coronary arterieson 08-30-2023 1. Coronary artery calcium score of 0*. *Coronary artery calcium scoring may be helpful in predicting the risk for future coronary heart disease events. According to the [place] [employer] Clinical Expert Consensus Task Force, such testing provides important prognostic information in patients with more than one coronary heart disease risk factor. The coronary artery calcium score correlates with the annual risk of a non-fatal myocardial infarction or coronary heart disease . Coronary artery score Annual Risk 0-99 0.4% 100-399 1.3% >400 2.4% These three breakpoints correspond to lower, intermediate and high risk states for future coronary events. Such information should be used, along with appropriate clinical judgment, to make decisions regarding the intensity of risk factor management strategies to treat blood lipids and to modify other non-lipid coronary risk factors. Reference: Melissa P et al. Circulation. 2007; 115:402-426 2. 5 mm nodule in the lingula. CT scanning of the chest recommended. 3. Dilated ascending aorta. Follow-up examination recommended. MACRO: None Signed by: Luigi Georges 08/30/2023 1:10 PM Dictation workstation: [id number] MMODAL Interpreted By: Luigi Georges, STUDY: CT CARDIAC SCORING WO IV CONTRAST; 08/27/2023 10:13 am INDICATION: Signs/Symptoms:SCREE TANESHA FOR CARDIOVASCULAR DISORDERS. COMPARISON: None. ACCESSION NUMBER(S): [id number] ORDERING CLINICIAN: APOLINAR OHARA TECHNIQUE: Using prospective ECG gating, CT scan of the coronary arteries was performed without intravenous contrast. Coronary calcium scoring was performed according to the method of Agatston. FINDINGS: The score and distribution of calcium in the coronary arteries is as follows: LM 0 LAD 0 LCx 0 RCA 0 Total 0 The visualized mid/lower ascending thoracic aorta measures 4.6 cm in diameter. The heart is normal in size. Calcification is seen in the aortic valve involving the right coronary cusp. No pericardial effusion is present. No gross evidence of mediastinal or hilar lymphadenopathy or masses is identified. The visualized segments of the lungs are normally expanded. A 5 mm nodule is seen in the lingular segment of the left upper lobe. The visualized subdiaphragmatic structures appear intact. [facility] MMODAL Luigi Georges MD - 08/30/2023 Interpreted By: Luigi Georges, STUDY: CT CARDIAC SCORING WO IV CONTRAST; 08/27/2023 10:13 am INDICATION: Signs/Symptoms:SCREE TANESHA FOR CARDIOVASCULAR DISORDERS. COMPARISON: None. ACCESSION NUMBER(S): [id number] ORDERING CLINICIAN: APOLINAR OHARA TECHNIQUE: Using prospective ECG gating, CT scan of the coronary arteries was performed without intravenous contrast. Coronary calcium scoring was performed according to the method of Agatston. FINDINGS: The score and distribution of calcium in the coronary arteries is as follows: LM 0 LAD 0 LCx 0 RCA 0 Total 0 The visualized mid/lower ascending thoracic aorta measures 4.6 cm in diameter. The heart is normal in size. Calcification is seen in the aortic valve involving the right coronary cusp. No pericardial effusion is present. No gross evidence of mediastinal or hilar lymphadenopathy or masses is identified. The visualized segments of the lungs are normally expanded. A 5 mm nodule is seen in the lingular segment of the left upper lobe. The visualized subdiaphragmatic structures appear intact. IMPRESSION: 1. Coronary artery calcium score of 0*. *Coronary artery calcium scoring may be helpful in predicting the risk for future coronary heart disease events. According to the [place] [employer] Clinical Expert Consensus Task Force, such testing provides important prognostic information in patients with more than one coronary heart disease risk factor. The coronary artery calcium score correlates with the annual risk of a non-fatal myocardial infarction or coronary heart disease . Coronary artery score Annual Risk 0-99 0.4% 100-399 1.3% >400 2.4% These three breakpoints correspond to lower, intermediate and high risk states for future coronary events. Such information should be used, along with appropriate clinical judgment, to make decisions regarding the intensity of risk factor management strategies to treat blood lipids and to modify other non-lipid coronary risk factors. Reference: Melissa P et al. Circulation. 2007; 115:402-426 2. 5 mm nodule in the lingula. CT scanning of the chest recommended. 3. Dilated ascending aorta. Follow-up examination recommended. MACRO: None Signed by: Luigi Georges 08/30/2023 1:10 PM Dictation workstation: [id number] [facility] Work Phone: CT for calcium scoring WO co ntrast and CTA W contrast IV Heart and coronary arteriesOrdered By: Luigi Georges on 08-30-2023 [facility] Work Phone: CT CARDIAC SCORING WO IV CON TRASTon 08-27-2023 CT CARDIAC SCORING WO IV CONTRAST Interpreted By: uLigi Georges, STUDY: CT CARDIAC SCORING WO IV CONTRAST; 08/27/2023 10:13 am INDICATION: Signs/Symptoms:SCREE TANESHA FOR CARDIOVASCULAR DISORDERS. COMPARISON: None. ACCESSION NUMBER(S): [id number] ORDERING CLINICIAN: APOLINAR OHARA TECHNIQUE: Using prospective ECG gating, CT scan of the coronary arteries was performed without intravenous contrast. Coronary calcium scoring was performed according to the method of Agatston. FINDINGS: The score and distribution of calcium in the coronary arteries is as follows: LM 0 LAD 0 LCx 0 RCA 0 Total 0 The visualized mid/lower ascending thoracic aorta measures 4.6 cm in diameter. The heart is normal in size. Calcification is seen in the aortic valve involving the right coronary cusp. No pericardial effusion is present. No gross evidence of mediastinal or hilar lymphadenopathy or masses is identified. The visualized segments of the lungs are normally expanded. A 5 mm nodule is seen in the lingular segment of the left upper lobe. The visualized subdiaphragmatic structures appear intact. IMPRESSION: 1. Coronary artery calcium score of 0*. *Coronary artery calcium scoring may be helpful in predicting the risk for future coronary heart disease events. According to the [place] [employer] Clinical Expert Consensus Task Force, such testing provides important prognostic information in patients with more than one coronary heart disease risk factor. The coronary artery calcium score correlates with the annual risk of a non-fatal myocardial infarction or coronary heart disease . Coronary artery score Annual Risk 0-99 0.4% 100-399 1.3% >400 2.4% These three breakpoints correspond to lower, intermediate and high risk states for future coronary events. Such information should be used, along with appropriate clinical judgment, to make decisions regarding the intensity of risk factor management strategies to treat blood lipids and to modify other non-lipid coronary risk factors. Reference: Melissa P et al. Circulation. 2007; 115:402-426 2. 5 mm nodule in the lingula. CT scanning of the chest recommended. 3. Dilated ascending aorta. Follow-up examination recommended. MACRO: None Signed by: Luigi Georges 08/30/2023 1:10 PM Dictation workstation: [id number] [facility] Comment on above: Order Comment: ORD F AXED FROM OFFICE CT for calcium scoring WO co ntrast and CTA W contrast IV Heart and coronary arterieson 08-27-2023 Radiology Study observation (narrative) [facility] Work Phone: Cardiology Visit Reporton Cardiology Visit Report [facility] [address] [place] [address] OFFICE VISIT Date of Service: 04/27/23 MR#: [id number] Acct: [id number] Name: DUANE KEE Rep #: [id number] : 1955 Provider: Dr. Apolinar Ohara MD Age/Sex: 68/M Location: [facility] [place] Status: Signed HPI [facility] History of Present Illness Details: DUANE KEE, is a 68 M who presents to the office today for a cardiovascular outpatient follow-up. He has a history of paroxysmal atrial fibrillation, valvular heart disease, hypertension, hyperlipidemia, and CVA in May 2017. Echocardiogram in April 2021 showed ejection function of 55% and an aortic root measuring 4.2 cm. Stress test on 10/24/2021 was negative for ischemia. He denies chest, arm, jaw, or neck discomfort. He denies palpitations. He denies bilateral lower extremity edema. He denies claudication. He states shortness of breath with activity such walking fast or uphill. He denies shortness of breath at rest, orthopnea, or PND. He states intermittent snoring. He denies chronic cough. He denies significant, sudden weight gain. He denies lightheadedness, dizziness, near-syncope, or syncope. He denies blood in urine, blood in stool, or epistaxis. He denies fever or chills. He denies myalgia. He denies fatigue. His exercise level has remained stable. Intake Vital Signs 04/14/22 15:41 09/29/22 15:32 04/27/23 13:48 Height 5 ft 10 in 5 ft 10 in 5 ft 10 in Weight: 259 lb BMI 37.1 BP 172/77 H Blood Pressure Location Lt brachial Position Sitting Respiration 22 H Pulse 66 Pulse Source Monitor Pulse Oximetry (%) 97 Intake Visit Reasons: 1 Y FU [employer] Required: No Is patient in pain?: No Allergies No Known Allergies Allergy (Verified 04/27/23 15:36) Medications apixaban 5 mg tablet (Eliquis) 5 mg PO BID #180 tabs 06/29/22 [Rx Confirmed 04/27/23] lisinopril 40 mg tablet 40 mg PO DAILY #90 tabs 04/27/23 [Rx Confirmed 04/27/23] PFSH Medical History Dilated aortic root Essential hypertension History of CVA (cerebrovascular accident) (05/18/17) Hyperlipidemia Paroxysmal atrial fibrillation Family History Father CVA (cerebral vascular accident) Social History Smoking Status: Never smoker alcohol intake: never substance use type: does not use caffeine: Yes ROS Const Const: Negative for fatigue, weakness, body ache, fever(s) or chills ENT ENT: Negative for dizziness or Nosebleed/epistaxis Cardio Chest Pain: No Palpitations: No Edema: None Muscle aches with walking: None Resp Respiratory: Positive for SOB with activity and snoring; Negative for SOB at rest, SOB orthopnea SOB lying down, Cough or paroxysmal nocturnal dyspnea GI GI: Negative nausea, vomiting blood/hematemesis, bright, red blood in stools or black,tarry stools : Negative for hematuria or frequent nighttime urination/ nocturia Musc Musc: Negative for muscle aches/ myalgia Skin Skin: Negative non-healing lesions or rash Neuro Neuro: Negative for dizziness, lightheadedness, near syncope, syncope, orthostatic symptoms or weakness Endo Endo: Negative for fatigue Allergy Allergy/Immunology: Negative for rash Cardiology Exam Const Appearance: cooperative, healthy appearing, comfortable and no acute distress Nutritional Appearance: well nourished and obese Orientation: alert, awake and oriented x3 Head Head: normal to inspection Ears: hearing grossly normal bilaterally Nose: external nose normal Face and Sinus: face symmetric Mouth: moist mucous membranes Eyes General: appearance normal, both eyes and all related structures Eyelids: eyelids normal EOM: EOM intact bilaterally Neck Neck: normal visual inspection and no JVD Carotids: normal carotid upstroke Chest Chest inspection: normal inspection of the chest, symmetric chest movement and normal respiratory effort; Negative cough Auscultation: Bilateral: Clear to Auscultation Cardio Rate: regular rate Rhythm: regular rhythm Heart sounds: S1 normal and S2 normal; Negative rub, gallop or murmur GI GI: normal to inspection and obese Neuro General: patient alert, patient awake, patient oriented x3 and CN's II-XI intact bilaterally Skin Skin: no rashes or lesions noted Extremities Pulses: Normal: Right Posterior Tibial Pulse, Left Posterior Tibial Pulse, Right Radial Pulse and Left Radial Pulse Lower Extremity Edema: None: Bilateral Psych Psychological: normal affect Supplemental Info Supplemental Information Stress test 10/24/2021: Conclusion: Normal pharmacologic myocardial perfusion stress test. Preserved ejection fraction. ECHOCARDIOGRAM 7 (more content not included)... Normal [facility] Office Visiton 06-02-2017 Documentation of current medications (procedure) Done Invalid Interpretation Code [facility] Work Phone: Fall risk assessment No Invalid Interpretation Code [facility] Work Phone: Clinical Lists Update: 05-27-2017 Left ventricular Ejection fraction 60 % Invalid Interpretation Code [facility] Work Phone: Tobacco smoking status NHIS Never smoker [facility] Work Phone: Tobacco use CPHS Never smoker Invalid Interpretation Code [facility] Work Phone: Clinical Lists Update: 05-25-2017 Alanine aminotransferase (ALT) 26 U/L Invalid Interpretation Code [facility] Work Phone: Albumin 4.5 g/dL Invalid Interpretation Code [facility] Work Phone: Alkaline phosphatase (ALP) 43 U/L Invalid Interpretation Code [facility] Work Phone: ALP enzyme act/vol (Bld) 43 U/L [facility] Work Phone: Aspartate aminotransferase (AST) 23 U/L Invalid Interpretation Code [facility] Work Phone: Bilirubin (direct) 0.1 mg/dL Invalid Interpretation Code [facility] Work Phone: Bilirubin (total) 0.5 mg/dL Invalid Interpretation Code [facility] Work Phone: BUN/Creatinine Ratio 21.9 mg/mg Invalid Interpretation Code [facility] Work Phone: Calcium 10.1 mg/dL Invalid Interpretation Code [facility] Work Phone: Chloride 105 mmol/L Invalid Interpretation Code [facility] Work Phone: Cholesterol 151 mg/dL Invalid Interpretation Code [facility] Work Phone: Cholesterol to HDL Ratio 2.6 {ratio} Invalid Interpretation Code [facility] Work Phone: CO2 29 mmol/L Invalid Interpretation Code [facility] Work Phone: CO2 ppres (BldV) 29 mmol/L [facility] Work Phone: Creatinine 0.93 mg/dL Invalid Interpretation Code [facility] Work Phone: Globulin 2.6 g/dL Invalid Interpretation Code [facility] Work Phone: Globulin mass conc (S) 2.6 g/dL [facility] Work Phone: Glucose 97 mg/dL Invalid Interpretation Code [facility] Work Phone: Glucose mass conc 97 mg/dL [facility] Work Phone: HDL Cholesterol 57 mg/dL Invalid Interpretation Code [facility] Work Phone: LDL Cholesterol 82 mg/dL Invalid Interpretation Code [facility] Work Phone: Potassium 4.9 mmol/L Invalid Interpretation Code [facility] Work Phone: Protein 7.1 g/dL Invalid Interpretation Code [facility] Work Phone: Sodium 142 mmol/L Invalid Interpretation Code [facility] Work Phone: Triglyceride 61 mg/dL Invalid Interpretation Code [facility] Work Phone: Urea nitrogen 20 mg/dL Invalid Interpretation Code [facility] Work Phone: Vital Signs Date Time Vital Sign Value Performing Clinician Scottie zamora 06-02-2017 11:02-0400 BMI (Body Mass Index) 39.15 kg/m2 [facility] Work Phone: 06-02-2017 11:02-0400 BP Diastolic 60 mm[Hg] Melodie Gonsalez [facility] Work Phone: 06-02-2017 11:02-0400 BP Systolic 110 mm[Hg] Melodie Gonsalez [facility] Work Phone: 06-02-2017 11:02-0400 Height 170.18 cm Melodie Gonsalez [facility] Work Phone: 06-02-2017 11:02-0400 Pulse (Heart Rate) 80 /min Melodie Gonsalez [facility] Work Phone: 06-02-2017 11:02-0400 Respiratory Rate 20 /min [facility] Work Phone: 06-02-2017 11:02-0400 Weight 113.4 kg Melodie [facility] Work Phone: Encounters Encounter Date Encounter Type Care Provider Facility Start: 03-17-2024 ambulatory [facility] Facility:[facility] Start: 03-17-2024 End: 03-17-2024 ambulatory [facility] Facility:[facility] Start: 01-25-2024 End: 01-25-2024 ambulatory [facility] Facility:[facility] [place] [facility] [place] Start: 08-27-2023 End: 08-27-2023 Subsequent hospital visit by physician Terrence Rocha 1 [facility] Comment on above: Personal history of transient ischemic attack (TIA), and cerebral infarction without residual deficits; Essential (primary) hypertension; Hyperlipidemia, unspecified; Paroxysmal atrial fibrillation (CMS/HCC); Nonrheumatic aortic (valve) insufficiency Start: 08-27-2023 End: 08-27-2023 ambulatory [facility] Start: 04-27-2023 End: 04-27-2023 ambulatory [facility] Facility:[facility] [place] Procedures Date Procedure Procedure Detail Performing Clinician Start: 08-27-2023 CT CARDIAC SCORING W O IV CONTRAST APOLINARAsher OHARA Start: 08-27-2023 Ct heart no contrast quant eval coronry calcium Apolinar Ohara MD Work Phone: Plan of Treatment Date Care Activity Detail Author Start: 06-18-2023 Influenza vaccination Influenza Vacc ine (#1) [facility] Start: 12-03-2017 End: 12-03-2017 Appointment Appointment [facility] Work Phone: Start: 06-16-2017 End: 06-16-2017 Appointment Appointment [facility] Work Phone: Start: 06-02-2017 End: 06-02-2017 Appointment Appointment [facility] Work Phone: Start: 06-02-2017 End: 06-02-2017 Follow Up Appt 6 months Follow Up Appt 6 months [facility] Work Phone: Start: 06-02-2017 End: 06-02-2017 JHR ANDREWR [facility] Work Phone: Start: 2005 Zoster Vaccines (1 o f 2) Zoster Vaccines (1 of 2) [facility] Start: 1977 DTaP/Tdap/Td Vaccine s (1 - Tdap) DTaP/Tdap/Td Vaccines (1 - Tdap) [facility] Start: 1973 Diabetes mellitus screening Diabetes Screening [facility] Start: 1973 Hepatitis C screening Hepatitis C Sc reening [facility] Start: 1961 Pneumococcal Vaccine : 65+ Years (1 - PCV) Pneumococcal Vaccine: 65+ Years (1 - PCV) [facility] Start: 1955 COVID-19 Vaccine (#1) COVID-19 Vacci ne (#1) [facility] Start: 1955 Lipid panel Lipid Panel [facility] Start: 1955 Screening for malign ant neoplasm of colon [facility] Start: 1955 Yearly Adult Physical Yearly Adult P hysical [facility] End: 08-27-2023 CT for calcium scoring WO contrast and CTA W contrast IV Heart and coronary arteries [facility] Work Phone: Comment on above: Once for 1 Occurrenc es starting 08/27/2023 until 08/27/2023 Payers Date Payer Category Payer Unknown [id number] 2023 Self-pay 2023 Unknown Unknown [id number] Unknown [id number] Unknown [id number] Unknown [id number] Social History Date Type Detail Facility Tobacco smoking status NHIS Tobacco smoking consumption unknown [facility] Work Phone: Start: 1955 Sex Assigned At Not on file [facility] Work Phone: Gender identity Not on file [facility] Work Phone: Start: 08-17-2023 End: 08-27-2023 Exposure to SARS-CoV-2 (event) Not sure [facility] Evaluation note Note Date & Type Note Facility Evaluation note Diagnosis Personal history of transient ischemic attack (TIA), and cerebral infarction without residual deficits Essential (primary) hypertension Unspecified essential hypertension Hyperlipidemia, unspecified Paroxysmal atrial fibrillation (CMS/HCC) Atrial fibrillation Nonrheumatic aortic (valve) insufficiency documented in this encounter [facility] Work Phone: Evaluation note Note Date & Type Note Facility Evaluation note Diagnosis Personal history of transient ischemic attack (TIA), and cerebral infarction without residual deficits Essential (primary) hypertension Unspecified essential hypertension Hyperlipidemia, unspecified Paroxysmal atrial fibrillation (CMS/HCC) Atrial fibrillation Nonrheumatic aortic (valve) insufficiency documented in this encounter [facility] Work Phone: Reason for Referral Specialty Diagnoses / Procedures Referred By Contac t Referred To Contact Radiology Diagnoses Personal history of transient ischemic attack (TIA), and cerebral infarction without residual deficits Essential (primary) hypertension Hyperlipidemia, unspecified Paroxysmal atrial fibrillation (CMS/HCC) Nonrheumatic aortic (valve) insufficiency Procedures CT cardiac scoring wo IV contrast Apolinar Ohara MD [address] [facility] [address] [address] Referral ID Status Reason Start Date Expiration Date Visits Requested Visits Authorized [id number] Authorized Perform Procedure 08/19/2023 08/18/2024 1 1 Summary Purpose Family History No Family History Records FoundNo Family History Records Found Advance Directives No Advanced Directives Records FoundNo Advanced Directives Records Found Additional Source Comments Reason for Visit (unrecogniz ed section and content) Specialty Diagnoses / Procedures Referred By Contac t Referred To Contact Radiology Diagnoses Personal history of transient ischemic attack (TIA), and cerebral infarction without residual deficits Essential (primary) hypertension Hyperlipidemia, unspecified Paroxysmal atrial fibrillation (CMS/HCC) Nonrheumatic aortic (valve) insufficiency Procedures CT cardiac scoring wo IV contrast Apolinar Ohara MD [address] [address] Referral ID Status Reason Start Date Expiration Date Visits Requested Visits Authorized [id number] Authorized Perform Procedure 08/19/2023 08/18/2024 1 1 Care Teams (unrecognized sec tion and content) Barrel Bander Relationship Specialty Start Date End Date Apolinar Ohara MD [address] [id number] PCP - General Cardiology 08/19/23 Barrel Bander Relationship Specialty Start Date End Date [facility]olin[facility]ara MD [facility] [address] [id number] PCP - General Cardiology 08/19/23 (unrecognized sect ion and content) No Status Records FoundNo Status Records Found INFORMATION SOURCE (unrecogn ized section and content) DATE CREATED AUTHOR 04/12/2024 [facility] DATE CREATED AUTHOR AUTHOR'Yanick BRYAN 06/28/2024 [facility] FOR RECORDS PERTAINING TO PATIENTS WHO ARE OR HAVE BEEN ENROLLED IN A CHEMICAL DEPENDENCY/SUBSTANCEABUSE PROGRAM, SOME INFORMATION MAY BE OMITTED. This clinical summary was aggregated from multiple sources. Caution should be exercised in using it in the provision of clinical care. This summary normalizes information from multiple sources, and as a consequence, information in this document may materially change the coding, format and clinical context of patient data. In addition, data may be omitted in some cases. CLINICAL DECISIONS SHOULD BE BASED ON THE PRIMARY CLINICAL RECORDS. [employer] provides no warranty or guarantee of the accuracy or completeness of information in this document.
[2025-03-30 11:00] LABS: Troponin T High Sens 2 HR 23 ng/L (<=22)
[2025-03-30] MEDS: Lisinopril 40 MG Tablet PO (11:02)
[2025-03-30 11:56] VITALS: BP 185/63; PULSE 58; RESP 13; TEMP 36.7; O2SAT 100
== END 2025-03-30 11:56 | disposition home or self-care (01) ==
PROVIDERS: Emergency Provider Emergency Medicine; PCP Family Medicine; Visit Provider Emergency Medicine
DX: R42 Dizziness and giddiness (principal); I48.0 Paroxysmal atrial fibrillation; E78.5 Hyperlipidemia, unspecified; I10 Essential (primary) hypertension; Z79.899 Other long term (current) drug therapy; Z86.73 Personal history of transient ischemic attack (TIA), and cerebral infarction without residual deficits; H61.22 Impacted cerumen, left ear
CPT/HCPCS: 69209; 70496; 70498; 71046; 80053; 84484; 85025; 85610; 93005; 99285; Q9967; A4216